=== PATIENT | female | born 1965 | race Caucasian/White ===

== ENCOUNTER → 2020-08-08 | Day surgery (SDC) | payer OTHER ==
[~2020-08-08] MED LIST: ALLEGRA ALLERG180 MG PO; ASPIRIN EC81 MG PO; FETZIMA40 MG PO; FETZIMA80 MG PO; FLONASE ALLER15.8 ML; IRBESARTAN150 MG PO; OFLOXACIN5 M1 EYEBOTH; SINGULAIR10 MG PO
== END | disposition home or self-care (01) ==
LOC: FAS 07:40
DX: K21.9 Gastro-esophageal reflux disease without esophagitis (principal); Z12.11 Encounter for screening for malignant neoplasm of colon; D12.5 Benign neoplasm of sigmoid colon; K29.50 Unspecified chronic gastritis without bleeding; K57.50 Diverticulosis of both small and large intestine without perforation or abscess without bleeding; Z20.822 Contact with and (suspected) exposure to COVID-19; I10 Essential (primary) hypertension; R07.9 Chest pain, unspecified; K82.8 Other specified diseases of gallbladder; K76.0 Fatty (change of) liver, not elsewhere classified; Z87.891 Personal history of nicotine dependence; Z90.710 Acquired absence of both cervix and uterus; Z88.0 Allergy status to penicillin; Z87.19 Personal history of other diseases of the digestive system
CPT/HCPCS: J2250; J2704; J7120; U0002